=== PATIENT | female | born 1995 | race Caucasian/White ===

== ENCOUNTER 2017-08-01 12:20 | Inpatient (IN) | payer OTHER ==
[~2017-08-01 12:20] MED LIST: FAMOTIDINE 20 MG INJ
[2017-08-01] MEDS: LACTATED RINGER'S 1,000 ML IV ×2 (14:21→14:55)
[2017-08-01] MEDS ORDERED: METHYLERGONOVINE 0.2 MG INJ IM ×3 (15:00→20:30)
[2017-08-01] MEDS ORDERED: MISOPROSTOL 200 MCG TAB PR ×3 (15:00→20:30)
[2017-08-01] MEDS ORDERED: CEFAZOLIN 2 GM/50 ML (PMX) 50 ML IV (15:00)
[2017-08-01] MEDS ORDERED: CARBOPROST 250 MCG INJ IM ×3 (15:00→20:30)
[2017-08-01] MEDS ORDERED: OXYTOCIN 30 UNITS/LR 500 ML IV ×5 (15:00→20:30)
[2017-08-01 15:11] LABS: ADD MAN DIFF? NO
[2017-08-01] MEDS: AMPICILLIN 2 GM/NS (PMX) 100 ML IV (15:17)
[2017-08-01 15:19] LABS: BASOPHILS % 0.4 % (0.0-2.0); EOSINOPHILS % 0.2 % (0.0-7.0); HEMATOCRIT 33.1 % (37.0-47.0); HEMOGLOBIN 11.2 g/dl (12.0-16.0); LYMPHOCYTES % 20.8 % (15.0-51.0); MEAN CORPUSCULAR HEMOGLOBIN 28.1 pg (29.0-33.0); MEAN CORPUSCULAR HGB CONC 33.8 g/dl (32.0-37.0); MEAN CORPUSCULAR VOLUME 83.2 fl (82.0-101.0); MEAN PLATELET VOLUME 11.7 fl (7.4-10.4); MONOCYTE # 0.5 10^3/ul (0.3-0.9); NEUTROPHIL # 7.1 10^3/ul (1.6-7.5); NEUTROPHILS % 73.3 % (39.0-77.0); PLATELET COUNT 235 10^3/UL (140-415); RED BLOOD COUNT 3.98 10^6/ul (4.20-5.40)
[2017-08-01 15:19] LABS: WHITE BLOOD COUNT 9.7 10^3/ul (4.8-10.8)
[2017-08-01] MEDS: CITRIC ACID/SODIUM CITRATE 15 ML CUP PO (15:19)
[2017-08-01] MEDS: METOCLOPRAMIDE 10 MG INJ IV (15:20)
[2017-08-01] MEDS: FAMOTIDINE 20 MG INJ IV (15:20)
[2017-08-01 15:33] LABS: PROTIME 12.2 Sec (11.9-14.9)
[2017-08-01 15:34] LABS: PARTIAL THROMBOPLASTIN TIME 26.9 Sec (25.0-35.0)
[2017-08-01] MEDS ORDERED: morphine SULFATE/PF (10 MG/10 ML) INJ (15:59)
[2017-08-01] MEDS ORDERED: FENTAnyl 50 MCG/ML VIAL (15:59)
[2017-08-01 16:08] LABS: HEPATITIS B SURFACE ANTIGEN NEGATIVE (NEGATIVE)
[2017-08-01] MEDS ORDERED: PHENYLephrine (100 MCG/ML) 5ML SYG (16:11)
[2017-08-01] MEDS ORDERED: NALOXONE (0.4 MG/ML) INJ IV (16:30)
[2017-08-01] MEDS ORDERED: ONDANSETRON 4 MG INJ IV (16:30)
[2017-08-01] MEDS ORDERED: PROCHLORPERAZINE 10 MG INJ IV (16:30)
[2017-08-01] MEDS ORDERED: DIPHENHYDRAMINE 50 MG INJ IV ×2 (16:30)
[2017-08-01] MEDS ORDERED: FENTAnyl 50 MCG/ML VIAL IV (16:30)
[2017-08-01] MEDS ORDERED: KETOROLAC 30 MG INJ IV (16:30)
[2017-08-01] MEDS ORDERED: MEPERIDINE 25 MG INJ IV (16:30)
[2017-08-01] MEDS ORDERED: ZOLPIDEM 5 MG TAB PO (16:30)
[2017-08-01] MEDS ORDERED: HYDROmorphONE 0.5 MG/0.5 ML SYG IV ×2 (16:30)
[2017-08-01] MEDS ORDERED: ONDANSETRON 4 MG INJ (16:36)
[2017-08-01 17:29] LABS: GLUCOSE 87 mg/dl (70-220)
[2017-08-01] MEDS: OXYTOCIN 30 UNITS/LR 500 ML IV ×2 (17:40→20:39)
[2017-08-01] MEDS: CEFAZOLIN 2 GM/50 ML (PMX) 50 ML IV (18:18)
[2017-08-01] MEDS: HYDROmorphONE (0.2 MG/ML) 10ML SYG IV (19:32)
[2017-08-01] MEDS ORDERED: HYDROCODONE/APAP (5/325) TAB PO ×2 (20:30)
[2017-08-01] MEDS ORDERED: OXYCODONE/ACETAMINOPHEN (5/325) TAB PO (20:30)
[2017-08-01] MEDS ORDERED: LANOLIN 7 GM TUBE TOP (20:30)
[2017-08-01] MEDS: SENNA/DOCUSATE NA (8.6MG/50MG) TAB PO (21:00)
[2017-08-01] MEDS: CEFAZOLIN 1 GM/50 ML (PMX) 50 ML IVPB (21:54)
[2017-08-01 22:35] LABS: RAPID PLASMA REAGIN NONREACTIVE (NR)
[2017-08-02] MEDS: ONDANSETRON 4 MG INJ IV (02:14)
[2017-08-02] MEDS: OXYTOCIN 30 UNITS/LR 500 ML IV ×6 (02:16→20:22)
[2017-08-02] MEDS: LACTATED RINGER'S 1,000 ML IV ×2 (06:53→14:30)
[2017-08-02] MEDS: KETOROLAC 30 MG INJ IV ×2 (08:06→15:36)
[2017-08-02 08:41] LABS: ADD MAN DIFF? NO
[2017-08-02 08:43] LABS: WHITE BLOOD COUNT 11.5 10^3/ul (4.8-10.8)
[2017-08-02 08:43] LABS: BASOPHILS % 0.3 % (0.0-2.0); EOSINOPHILS % 0.1 % (0.0-7.0); HEMATOCRIT 27.8 % (37.0-47.0); HEMOGLOBIN 9.5 g/dl (12.0-16.0); LYMPHOCYTES # 1.5 10^3/ul (0.8-2.9); LYMPHOCYTES % 13.1 % (15.0-51.0); MEAN CORPUSCULAR HEMOGLOBIN 29.1 pg (29.0-33.0); MEAN CORPUSCULAR HGB CONC 34.2 g/dl (32.0-37.0); MEAN CORPUSCULAR VOLUME 85.3 fl (82.0-101.0); MEAN PLATELET VOLUME 11.1 fl (7.4-10.4); MONOCYTE # 0.8 10^3/ul (0.3-0.9); NEUTROPHIL # 9.1 10^3/ul (1.6-7.5); NEUTROPHILS % 79.2 % (39.0-77.0); PLATELET COUNT 179 10^3/UL (140-415); RED BLOOD COUNT 3.26 10^6/ul (4.20-5.40); RED CELL DISTRIBUTION WIDTH 12.8 % (11.5-14.5)
[2017-08-02] MEDS: SENNA/DOCUSATE NA (8.6MG/50MG) TAB PO ×2 (09:06→20:04)
[2017-08-02] MEDS: IBUPROFEN 600 MG TAB PO ×2 (17:59→23:52)
[2017-08-03] MEDS: LACTATED RINGER'S 1,000 ML IV ×2 (00:20→06:30)
[2017-08-03] MEDS: OXYTOCIN 30 UNITS/LR 500 ML IV ×2 (00:22→04:22)
[2017-08-03] MEDS: IBUPROFEN 600 MG TAB PO ×4 (05:45→23:45)
[2017-08-03] MEDS: SENNA/DOCUSATE NA (8.6MG/50MG) TAB PO ×2 (08:43→21:00)
[2017-08-03] MEDS: NA PHOSPHATE/BIPHOS 133 ML ENEMA PR (10:00)
[2017-08-04] MEDS: IBUPROFEN 600 MG TAB PO ×2 (06:00→12:12)
[2017-08-04] MEDS: SENNA/DOCUSATE NA (8.6MG/50MG) TAB PO (08:45)
[2017-08-04] MEDS: OXYCODONE/ACETAMINOPHEN (5/325) TAB PO (08:46)
[2017-08-04] MEDS: DIPHTH/TET/ACEL PERTUSS (ADULT) 0.5 ML VIAL IM* (09:00)
== END 2017-08-04 16:07 | disposition home or self-care (01) | DRG 766 ==
LOC: OBT 12:20 → L-D 12:21 → OBT 14:14 → L-D 14:00 → PP1 21:19
PROVIDERS: Obstetrics & Gynecology
PROC: 10D00Z1 Extraction of Products of Conception, Low, Open Approach (ICD-10-PCS; principal; 2017-08-01)
DX: O34.219 Maternal care for unspecified type scar from previous cesarean delivery (principal); Z37.0 Single live birth; Z3A.39 39 weeks gestation of pregnancy
CPT/HCPCS: 82947; 85025; 85610; 85730; 86592; 86850; 86900; 86901; 87340; 94760; 99464